=== PATIENT | female | born 1965 | race Caucasian/White ===

== ENCOUNTER 2022-07-06 07:32 | Day surgery (SDC) | payer BC ==
[2022-07-01 11:27] VITALS: BMI 31.7
[~2022-07-06 07:32] MED LIST: EPINEPHrine 0.3 MG in Ophthalmic Irrigation Solution 500 ML IRR SCH; Midazolam HCl 2 mg/2 ml Vial ONE; fentaNYL 50 mcg/mL 1 mL Vial ONE
[2022-07-06] MEDS ORDERED: Cyclopentolate 1% Opth Drop 2 ML BOT ONE (08:26)
[2022-07-06] MEDS ORDERED: Phenylephrine 2.5% Ophth Soln 5 ML BOT ONE (08:26)
[2022-07-06] MEDS ORDERED: Midazolam HCl 2 mg/2 ml Vial ONE (09:02)
[2022-07-06] MEDS ORDERED: Bupivacaine 0.75% 10 ML VIAL ONE (09:35)
[2022-07-06] MEDS ORDERED: CEFAZOLIN 1 GM VIAL ONE (09:35)
[2022-07-06] MEDS ORDERED: Lidocaine 4% PF 5 ML AMP ONE (09:35)
[2022-07-06] MEDS ORDERED: Lidocaine 1% PF 5 ML VIAL ONE (09:35)
[2022-07-06] MEDS ORDERED: PROPOFOL 200 MG/20 ML VIAL ONE (09:35)
[2022-07-06] MEDS ORDERED: Triamcinolone 40 MG/ML VIAL ONE (09:35)
[2022-07-06] MEDS ORDERED: Indocyanine Green 25 MG/10 ML VIAL ONE (09:35)
[2022-07-06] MEDS ORDERED: Maxitrol 0.1% Opth Oint 3.5 GM TUBE ONE (09:35)
== END 2022-07-06 11:02 | disposition home or self-care (01) ==
LOC: SDC 07:32
PROVIDERS: ATTEND Ophthalmology Retina Specialist
PROC: 08QF3ZZ Repair Left Retina, Percutaneous Approach (ICD-10-PCS; principal; 2022-07-06)
PROC: 08NF3ZZ Release Left Retina, Percutaneous Approach (ICD-10-PCS; principal; 2022-07-06)
PROC: 08T53ZZ Resection of Left Vitreous, Percutaneous Approach (ICD-10-PCS; principal; 2022-07-06)
DX: E11.3592 Type 2 diabetes mellitus with proliferative diabetic retinopathy without macular edema, left eye (principal); H43.312 Vitreous membranes and strands, left eye; Z79.01 Long term (current) use of anticoagulants; Z79.02 Long term (current) use of antithrombotics/antiplatelets; Z79.2 Long term (current) use of antibiotics; Z79.4 Long term (current) use of insulin; Z79.84 Long term (current) use of oral hypoglycemic drugs; Z79.891 Long term (current) use of opiate analgesic; Z79.899 Other long term (current) drug therapy; Z88.6 Allergy status to analgesic agent; Z88.8 Allergy status to other drugs, medicaments and biological substances; Z91.040 Latex allergy status; Z95.1 Presence of aortocoronary bypass graft
CPT/HCPCS: 36416; 93005; 93010; J0171; J0690; J2250; J2704; J3010; J3301; J3490